=== PATIENT | male | born 1995 | race American Indian/Alaskan Native ===

== ENCOUNTER 2017-03-19 05:55 | Emergency (ER) | payer OTHER ==
[2017-03-19 06:01] VITALS: BP 146/84; PULSE 94; RESP 16; TEMP 98.9; O2SAT 99; BMI 44.4
--- NOTE | 2017-03-19 06:17 | ED PDOC ---
Arrival/HPI - General Historian: Patient - History of Present Illness Time/Duration: Prior to Arrival Symptom Onset: Sudden Symptom Course: Unchanged <Edvin Byrne - Last Filed: 03/19/17 06:31> <Marcin Martino - Last Filed: 03/19/17 07:08> - General Chief Complaint: Allergic Reaction Time Seen by Provider: 03/19/17 06:04 - History of Present Illness Narrative History of Present Illness (Text): 22 M with no significant pmh presents to the emergency department with allergic reaction. Patient states that he was at work and had [employer] last night around 10 hours ago. Than aprox 2 hours ago he started to feel a pruritic allergic rash on his chin and small bumps on his neck. He denies any inflammation of his airway or tongue. Denies this occurring before. He denies any fever, chills, shortness of breath, chest pain, n/v/d. (Edvin Byrne) Past Medical History - Provider Review Nursing Documentation Reviewed: Yes - Psychiatric Hx Substance Use: No - Surgical History Other/Comment: Hand surgery <Edvin Byrne - Last Filed: 03/19/17 06:31> Family/Social History - Physician Review Nursing Documentation Reviewed: Yes Family/Social History: No Known Family HX Smoking Status: Never Smoked Hx Alcohol Use: No Hx Substance Use: No <Edvin Byrne - Last Filed: 03/19/17 06:31> Allergies/Home Meds <Edvin Byrne - Last Filed: 03/19/17 06:31> <Marcin Martino - Last Filed: 03/19/17 07:08> Allergies/Adverse Reactions: Allergies No Known Allergies Allergy (Verified 03/19/17 06:00) Review of Systems - Review of Systems Respiratory: absent: SOB, Cough Cardiovascular: absent: Chest Pain, Palpitations Gastrointestinal: absent: Abdominal Pain Skin: Rash (on his chin. small bumps on his neck. ), Pruritis <Edvin Byrne - Last Filed: 03/19/17 06:31> Physical Exam Vital Signs Reviewed: Yes Temperature: Afebrile Blood Pressure: Normal Pulse: Tachycardic Respiratory Rate: Normal Appearance: Positive for: Well-Appearing, Non-Toxic, Comfortable Pain Distress: None Mental Status: Positive for: Alert and Oriented X 3 - Systems Exam Head: Present: Atraumatic, Normocephalic Pupils: Present: PERRL Extroacular Muscles: Present: EOMI Conjunctiva: Present: Normal Mouth: Present: Moist Mucous Membranes Neck: Present: Normal Range of Motion Respiratory/Chest: Present: Clear to Auscultation, Good Air Exchange. No: Respiratory Distress, Accessory Muscle Use Cardiovascular: Present: Regular Rate and Rhythm, Normal S1, S2. No: Murmurs Abdomen: Present: Normal Bowel Sounds. No: Tenderness, Distention, Peritoneal Signs Back: Present: Normal Inspection Upper Extremity: Present: Normal Inspection. No: Cyanosis, Edema Lower Extremity: Present: Normal Inspection. No: Edema Neurological: Present: GCS=15, CN II-XII Intact, Speech Normal Skin: Present: Warm, Dry, Rashes (area of urticaria to chin and few satelite pappular urticaria to the neck. ), Normal Color Psychiatric: Present: Alert, Oriented x 3, Normal Insight, Normal Concentration <Edvin Byrne - Last Filed: 03/19/17 06:31> Medical Decision Making <Edvin Byrne - Last Filed: 03/19/17 06:31> <Marcin Martino - Last Filed: 03/19/17 07:08> ED Course and Treatment: Impression: 22 M with no significant pmh presents to the emergency department with allergic reaction. Differential Diagnosis included but are not limited to: allergic reaction Plan: - Benedryl 50mg stat - Prednisone 60mg stat - Reassess and disposition Progress Notes: Pt resting comfortably in bed. Pt states that his symptoms have mostly resolved. 03/19/17 06:28 On reevaluation the patient feels better and is in no acute distress. I have discussed the results and plan with the patient, who expresses understanding. Patient given the opportunity to ask question, all questions were answered and there is agreement with the plan to discharge the patient home with prescription for Prednisone and Benedryl. Patient is stable for discharge. Patient was instructed to follow up with physician/clinic in 1-2 days or return if symptoms persist/worsen or new concerning symptoms arise. (Edvin Byrne) 03/19/17 06:10 Patient seen and evaluated with resident. Agree with HPI, clinical findings, plan and treatment. (Marcin Martino) - Medication Orders Current Medication Orders: Discontinued Medications Diphenhydramine HCl (Benadryl) 50 mg PO STAT STA Stop: 03/19/17 06:14 Last Admin: 03/19/17 06:20 Dose: 50 mg Prednisone (Prednisone Tab) 60 mg PO STAT ONE Stop: 03/19/17 06:13 Last Admin: 03/19/17 06:20 Dose: 60 mg - PA / ER RN / Resident Statement / has reviewed & agrees with the documentation as recorded. / has examined the patient and agrees with the treatment plan. <Marcin Martino - Last Filed: 03/19/17 07:08> Disposition/Present on Arrival - Present on Arrival Any Indicators Present on Arrival: No History of DVT/PE: No History of Uncontrolled Diabetes: No Urinary Catheter: No History of Decub. Ulcer: No History Surgical Site Infection Following: None - Disposition Have Diagnosis and Disposition been Completed?: Yes Disposition Time: 06:24 Patient Plan: Discharge <Edvin Byrne - Last Filed: 03/19/17 06:31> <Marcin Martino - Last Filed: 03/19/17 07:08> - Disposition Diagnosis: Urticaria due to food allergy, Allergic reaction Disposition: HOME/ ROUTINE Condition: IMPROVED Additional Instructions: Juan Boland, thank you for letting us take care of you today. Your provider was Dr Martino. You were treated for Allergic reaction. The emergency medical care you received today was directed at your acute symptoms. If you were prescribed any medication, please fill it and take as directed. It may take several days for your symptoms to resolve. Return to the Emergency Department if your symptoms worsen, do not improve, or if you have any other problems. Please contact your doctor or call one of the physicians/clinics you have been referred to that are listed on the Patient Visit Information form that is included in your discharge packet. Bring any paperwork you were given at discharge with you along with any medications you are taking to your follow up visit. Our treatment cannot replace ongoing medical care by a primary care provider (PCP) outside of the emergency department. Thank you for allowing the [facility] [employer] team to be part of your care today. If your allergic reaction symptom worsen come back to the closest emergency department. Follow up with your PMD with in 1-2 days. Take your medication Prednisone and Benedryl as prescribed. Prescriptions: DiphenhydrAMINE [Benadryl] 50 mg PO Q6H PRN #15 cap PRN Reason: Allergy Symptoms Prednisone [Deltasone] 40 mg PO DAILY #10 tablet
== END 2017-03-19 06:41 | disposition home or self-care (01) ==
LOC: ED 05:55
DX: L50.0 Allergic urticaria (principal)

== ENCOUNTER 2017-03-30 21:48 | Emergency (ER) | payer OTHER ==
[2017-03-30 21:48] VITALS: BMI 44.4
[2017-03-30 22:08] VITALS: BP 151/91; PULSE 91; RESP 17; TEMP 98.9; O2SAT 97
[2017-03-30] MEDS ORDERED: TDAP Vaccine 0.5 mL Syr IM ONE (22:29)
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
== END 2017-03-30 22:51 | disposition home or self-care (01) ==
LOC: ED 21:48
DX: S01.81XA Laceration without foreign body of other part of head, initial encounter (principal); S09.90XA Unspecified injury of head, initial encounter; Y04.0XXA Assault by unarmed brawl or fight, initial encounter; Z23 Encounter for immunization

== ENCOUNTER 2017-12-18 22:59 | Emergency (ER) | payer OTHER ==
[2017-12-18 22:59] VITALS: BMI 44.4
[2017-12-18 23:17] VITALS: BP 144/87; PULSE 71; RESP 18; TEMP 97.5; O2SAT 98
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
--- NOTE | 2017-12-19 08:29 | RAD ---
PROCEDURE: Radiographs of the right elbow. HISTORY: pain COMPARISON: No prior. FINDINGS: BONES: Normal. No fracture. JOINTS: Normal. No osteoarthritis. SOFT TISSUES: Normal. JOINT EFFUSION: None. OTHER FINDINGS: None. IMPRESSION: Unremarkable radiographs of the right elbow.
== END 2017-12-19 00:34 | disposition home or self-care (01) ==
LOC: ED 22:59
DX: S50.01XA Contusion of right elbow, initial encounter (principal); W22.8XXA Striking against or struck by other objects, initial encounter; Y99.0 Civilian activity done for income or pay